=== PATIENT | male | born 2005 | race Caucasian/White ===

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

== ENCOUNTER → 2025-05-21 | Outpatient (CLI) | payer OTHER, SELFPAY ==
--- NOTE | 2025-05-21 11:41 | RAD_ITS ---
PROCEDURE: CHEST PA AND LATERAL 05/21/2025 REASON FOR EXAM: LEFT RIB PAIN TECHNIQUE: Procedure Code: RADCXR Modality: DX Procedure: CHEST PA AND LATERAL FINDINGS: No focal consolidation. No pleural effusion or pneumothorax. Cardiac silhouette is within normal limits. No acute fractures. RAD/Chest PA and Lateral IMPRESSION: No definite acute fractures however consider dedicated rib series if there is c ontinued concern for left rib fractures. Reading Location: [id number]
--- NOTE | 2025-05-21 11:41 | RAD_ITS ---
PROCEDURE: CHEST PA AND LATERAL 05/21/2025 REASON FOR EXAM: LEFT RIB PAIN TECHNIQUE: Procedure Code: RADCXR Modality: DX Procedure: CHEST PA AND LATERAL FINDINGS: No focal consolidation. No pleural effusion or pneumothorax. Cardiac silhouette is within normal limits. No acute fractures. RAD/Chest PA and Lateral IMPRESSION: No definite acute fractures however consider dedicated rib series if there is c ontinued concern for left rib fractures. Reading Location: [id number]
--- NOTE | 2025-05-21 11:46 | RAD_ITS ---
PROCEDURE: ABD INC DECUB AND/OR ERECT 05/21/2025 REASON FOR EXAM: LLQ RLQ PAIN TECHNIQUE: Procedure Code: RADABDMV Modality: DX Procedure: Three-view ABD INC DECUB AND/OR ERECT COMPARISON: None. RAD/Abd Inc Decub and/or Erect IMPRESSION: No evidence of pneumoperitoneum. A moderate stool burden is seen. Bowel-gas pattern is otherwise unremarkable. No mass or mass effect is seen. No significant osseous abnormality is noted. Reading Location: [id number]
--- NOTE | 2025-05-21 11:46 | RAD_ITS ---
PROCEDURE: ABD INC DECUB AND/OR ERECT 05/21/2025 REASON FOR EXAM: LLQ RLQ PAIN TECHNIQUE: Procedure Code: RADABDMV Modality: DX Procedure: Three-view ABD INC DECUB AND/OR ERECT COMPARISON: None. RAD/Abd Inc Decub and/or Erect IMPRESSION: No evidence of pneumoperitoneum. A moderate stool burden is seen. Bowel-gas pattern is otherwise unremarkable. No mass or mass effect is seen. No significant osseous abnormality is noted. Reading Location: [id number]
--- OUTSIDE RECORDS SUMMARY | 2025-05-21 14:24 | XMS RPT_ITS | CCD ---
Author Organization [facility] Results Test Name Value Interpretation Reference Range Facil itlucie ARRINGTONOVon 06-29-2021 CNOV Office Visit (PEDSWS ) CAYLA EUBANKS ([id number]) 5 M Date Time Provider Department 06/29/21 9:00 AM VICKI CASAS During your visit today, we recorded the following information about you: Temperature Pulse Respiration Blood pressure 99.1 degrees 80/minute 18/minute 106/70 Weight 61.2 kg Vicki Casas MD 07/16/2021 1:41 PM Signed INITIAL VISIT PEDIATRIC CONCUSSION SERVICE DATE: 06/29/2021 Cayla is a 15 year old male accompanied by mother for evaluation of concussion. He states he blacked out for a second or two and then got up. He doesn't recall which area of his head was hit onto the ground. He states he was several feet in the air and then hit his head on the hardwood floor. They were playing a running game called [employer] and Minnows. History was obtained from: mother and patient HPI: Date of injury: 06/21/2021 (8 days ago) Time of injury: During gym class Sport being played at time of injury: Running game Patient removed from game: Yes, by teacher Helmet worn: No Mouth piece used: No What hit your head? head to playing surface - hardwood Percent feeling back to normal self? 95% Symptoms since the injury have improved per patient. Number of previous concussions: 1 SCAT3 (Ages13 y/o and up) Sport Concussion Assessment Tool 3 How do you feel (right now)? none=0, mild=1-2, moderate=3-4, severe=5-6 ? Headache 1 ? Pressure in head 0 ? Neck Pain 0 ? Nausea or vomitting 0 ? Dizziness 0 ? Blurred Vision 0 ? Balance Problems 0 ? Sensitivity to light 0 ? Sensitivity to Noise 0 ? Feeling slowed down 1 ? Feeling like in a fog 0 ? Don't feel right 0 ? Difficulty concentrating 1 ? Difficulty remembering 0 ? Fatigue or low energy 1 ? Confusion 0 ? Drowsiness 0 ? Trouble falling asleep 1 ? More emotional 0 ? Irritability 0 ? Sadness 0 ? Nervous or Anxious 0 ? Do the symptoms get worse with physical activity? unknown ? Do the symptoms get worse with mental activity? unknown ? Symptom evaluation completed as clinician interview ? Overall rating: If you know the athlete well prior to the injury, how different is he acting compared to his usual self? n/a SAC (Ages13 y/o and up) Standardized Assessment of Concussion Orientation (1 point for each correct answer) ? What month is it? 0 ? What is the date today? 0 ? What is the day of the week? 1 ? What year is it? 1 ? What time is it right now? (within 1 hour) 1 Orientation Score 3 of 5 Immediate Memory (1 point for each correct answer) List Trial 1 Trial 2 Trial 3 Alternative Alternative Alternative elbow 1 1 1 candle baby finger apple 0 1 1 paper monkey charmaine carpet 1 1 1 sugar perfume blanket saddle 1 0 0 sandwich sunset lemon bubble 1 1 0 wagon iron insect Total 5 4 3 Immediate Memory Score Total 12 of 15 Concentration: Digits Backward (1 point for each correct answer) List Trial 1 Alternative Alternative Alternative 4-9-3 1 6-2-9 5-2-6 4-1-5 3-8-1-4 1 3-2-7-9 1-7-9-5 4-9-6-8 6-2-9-7-1 0 1-5-2-8-6 3-8-5-2-7 6-1-8-4-3 7-1-8-4-6-2 1 5-3-9-1-4-8 8-3-1-9-6-4 7-2-4-8-5-6 Total 3 of 4 Concentration: Month in Reverse Order (1 point for entire sequence correct) Jjt-Dna-Pdc-Apr-Mar- Apv-Mnj-Olu-- 0 Concentration Score 3 of 5 SAC Delayed Recall (Able to recall 5 serial words after delay) Delayed Recall Score 3 of 5 PAST MEDICAL HISTORY Diagnosis Date - NEGATIVE MEDICAL HISTORY ? How many concussions has Cayla had in the past? 1 ? When was the most recent concussion? 2019 ? ? Has Cayla ever been hospitalized or had medical imaging done (CT or MRI) for a head injury? no ? Has Cayla ever been diagnosed with headaches or migraines? no ? Does Cayla have a learning disability, dyslexia, ADD/ADHD or seizure disorder? no ? Has Cayla ever been diagnosed with depression, anxiety or other psychiatric disorder? no ? Has anyone in the family ever been diagnosed with any of these problems? no FAMILY HISTORY Problem Relation Age of Onset - None Unknown Social History Social History Narrative Not on file PHYSICAL EXAM: BP 106/70 Pulse 80 Temp 37.3 ?C (99.1 ?F) (Temporal Artery) Resp 18 Wt 61.2 kg (135 lb) General: Well developed, No acute distress Head: normocephalic Eyes: conjunctivae/corneas clear Oropharynx: moist mucous membranes, palate intact Neck: Supple, no adenopathy Resp: lungs clear to auscultation Heart: No murmurs, RRR , Normal S1 and S2. Extremities: No deformities or skin discoloration. Good capillary refill. Full range of motion. Skin: no rashes, lesions or jaundice NEUROLOGICAL EXAM: Cayla is alert and oriented times three Speech is Speech fluent and appropriate Cranial Nerves: Pupils are equal and reactive to light. Extraocular movements grossly intact Tongue is in midline Palate is upgoing evelyne (more content not included)... Normal [facility] Urgent Care Visit Reporton 0 03-27-2021 Urgent Care Visit Report [address] [place] [address] OFFICE VISIT Date of Service: 03/27/21 MR#: [id number] Acct: [id number] Name: CAYLA EUBANKS Rep #: [id number] : 2005 Provider: FEDERICA Pruitt Age/Sex: 15/M Location: [facility] [place] Status: Signed Intake Intake Visit Reasons: SPORTS PHYSICAL Chief Complaint: COUGH Allergies No Known Allergies Allergy (Verified 07/23/19 09:06) [facility] Medical History (Updated 03/26/20 @ 09:44 by Moise STALLWORTH PA) DAILY FEVERS History of concussion Severe headache Shortness of breath SUDDEN WEIGHT LOSS Social History (Updated 03/26/20 @ 09:45 by Moise STALLWORTH PA) Smoking Status: Never smoker alcohol intake: never HPI HPI Chief Complaint: COUGH Details: CAYLA EUBANKS, is a 15 M who presents to the office today for Coding Level of Care Code No Charge Assessment and Plan Plan Details Additional Comments: see scanned in documents 03/27/21 5707 A> Date Shima STALLWORTH Cosigner Signature: Date (if applicable) CC: [facility] Progress note 06-29-2021 Note Date & Type Note Facility 06-29-2021 Note HNO ID: [id number] Author: Vicki Casas MD Service: ? Author Type: Physician Type: Progress Notes Filed: 07/16/2021 1:41 PM Note Text: INITIAL VISIT PEDIATRIC CONCUSSION SERVICE DATE: 06/29/2021 Cayla is a 15 year old male accompanied by mother for evaluation of concussion. He states he blacked out for a second or two and then got up. He doesn't recall which area of his head was hit onto the ground. He states he was several feet in the air and then hit his head on the hardwood floor. They were playing a running game called [employer] and Minnows. History was obtained from: mother and patient HPI: Date of injury: 06/21/2021 (8 days ago) Time of injury: During gym class Sport being played at time of injury: Running game Patient removed from game: Yes, by teacher Helmet worn: No Mouth piece used: No What hit your head? head to playing surface - hardwood Percent feeling back to normal self? 95% Symptoms since the injury have improved per patient. Number of previous concussions: 1 SCAT3 (Ages13 y/o and up) Sport Concussion Assessment Tool 3 How do you feel (right now)? none=0, mild=1-2, moderate=3-4, severe=5-6 ? Headache 1 ? Pressure in head 0 ? Neck Pain 0 ? Nausea or vomitting 0 ? Dizziness 0 ? Blurred Vision 0 ? Balance Problems 0 ? Sensitivity to light 0 ? Sensitivity to Noise 0 ? Feeling slowed down 1 ? Feeling like in a fog 0 ? Don't feel right 0 ? Difficulty concentrating 1 ? Difficulty remembering 0 ? Fatigue or low energy 1 ? Confusion 0 ? Drowsiness 0 ? Trouble falling asleep 1 ? More emotional 0 ? Irritability 0 ? Sadness 0 ? Nervous or Anxious 0 ? Do the symptoms get worse with physical activity? unknown ? Do the symptoms get worse with mental activity? unknown ? Symptom evaluation completed as clinician interview ? Overall rating: If you know the athlete well prior to the injury, how different is he acting compared to his usual self? n/a SAC (Ages13 y/o and up) Standardized Assessment of Concussion Orientation (1 point for each correct answer) ? What month is it? 0 ? What is the date today? 0 ? What is the day of the week? 1 ? What year is it? 1 ? What time is it right now? (within 1 hour) 1 Orientation Score 3 of 5 Immediate Memory (1 point for each correct answer) List Trial 1 Trial 2 Trial 3 Alternative Alternative Alternative elbow 1 1 1 candle baby finger apple 0 1 1 paper monkey charmaine carpet 1 1 1 sugar perfume blanket saddle 1 0 0 sandwich sunset lemon bubble 1 1 0 wagon iron insect Total 5 4 3 Immediate Memory Score Total 12 of 15 Concentration: Digits Backward (1 point for each correct answer) List Trial 1 Alternative Alternative Alternative 4-9-3 1 6-2-9 5-2-6 4-1-5 3-8-1-4 1 3-2-7-9 1-7-9-5 4-9-6-8 6-2-9-7-1 0 1-5-2-8-6 3-8-5-2-7 6-1-8-4-3 7-1-8-4-6-2 1 5-3-9-1-4-8 8-3-1-9-6-4 7-2-4-8-5-6 Total 3 of 4 Concentration: Month in Reverse Order (1 point for entire sequence correct) Nzc-Qou-Qgn-Bbju-Lip-Gum-Fzo-Hii-Uji-Oct- 0 Concentration Score 3 of 5 SAC Delayed Recall (Able to recall 5 serial words after delay) Delayed Recall Score 3 of 5 PAST MEDICAL HISTORY Diagnosis Date - NEGATIVE MEDICAL HISTORY ? How many concussions has Cayla had in the past? 1 ? When was the most recent concussion? 2019 ? ? Has Cayla ever been hospitalized or had medical imaging done (CT or MRI) for a head injury? no ? Has Cayla ever been diagnosed with headaches or migraines? no ? Does Cayla have a learning disability, dyslexia, ADD/ADHD or seizure disorder? no ? Has Cayla ever been diagnosed with depression, anxiety or other psychiatric disorder? no ? Has anyone in the family ever been diagnosed with any of these problems? no FAMILY HISTORY Problem Relation Age of Onset - None Unknown Social History Social History Narrative Not on file PHYSICAL EXAM: BP 106/70 Pulse 80 Temp 37.3 ?C (99.1 ?F) (Temporal Artery) Resp 18 Wt 61.2 kg (135 lb) General: Well developed, No acute distress Head: normocephalic Eyes: conjunctivae/corneas clear Oropharynx: moist mucous membranes, palate intact Neck: Supple, no adenopathy Resp: lungs clear to auscultation Heart: No murmurs, RRR , Normal S1 and S2. Extremities: No deformities or skin discoloration. Good capillary refill. Full range of motion. Skin: no rashes, lesions or jaundice NEUROLOGICAL EXAM: Cayla is alert and oriented times three Speech is Speech fluent and appropriate Cranial Nerves: Pupils are equal and reactive to light. Extraocular movements grossly intact Tongue is in midline Palate is upgoing bilaterally Cayla is without significant pronator drift. Coordination is Gait normal station and stride. Romberg's sign negative ASSESSMENT/PLAN: Encounter Diagnosis ICD-10-CM 1. Concussion without loss of consciousness, initial encounter S06.0X0A - Discussed concussion, its usual (more content not included)... [facility] Summary Purpose Family History No Family History Records FoundNo Family History Records Found Advance Directives No Advanced Directives Records FoundNo Advanced Directives Records Found Additional Source Comments (unrecognized sect ion and content) No Status Records FoundNo Status Records Found INFORMATION SOURCE (unrecogn ized section and content) DATE CREATED AUTHOR 03/28/[address] [facility] DATE CREATED AUTHOR AUTHOR'S ORGANIZ ATION 10/07/2021 [facility] FOR RECORDS PERTAINING TO PATIENTS WHO ARE OR HAVE BEEN ENROLLED IN A CHEMICAL DEPENDENCY/SUBSTANCEABUSE PROGRAM, SOME INFORMATION MAY BE OMITTED. This clinical summary was aggregated from multiple sources. Caution should be exercised in using it in the provision of clinical care. This summary normalizes information from multiple sources, and as a consequence, information in this document may materially change the coding, format and clinical context of patient data. In addition, data may be omitted in some cases. CLINICAL DECISIONS SHOULD BE BASED ON THE PRIMARY CLINICAL RECORDS. [facility] [employer] provides no warranty or guarantee of the accuracy or completeness of information in this document.
--- OUTSIDE RECORDS SUMMARY | 2025-05-21 14:24 | XMS RPT_ITS | CCD ---
Author Organization [facility] Results Test Name Value Interpretation Reference Range Facil itlucie ARRINGTONOVon 06-29-2021 CNOV Office Visit (PEDSWS ) CAYLA EUBANKS ([id number]) 5 M Date Time Provider Department 06/29/21 [...] They were playing a running game called [employer] and Minnows. History was obtained from: mother [...] Order (1 point for entire sequence correct) Xkh-Sqj-Suk-Apr-Mar- Fwr-Bpi-Mzh-- 0 Concentration Score 3 of 5 SAC [...] upgoing evelyne (more content not included)... Normal [facility] Urgent Care Visit Reporton 0 03-27-2021 Urgent Care Visit Report [address] [place] [address] OFFICE VISIT Date of Service: 03/27/21 MR#: [id number] Acct: [id number] Name: CAYLA EUBANKS Rep #: [id number] : 2005 Provider: FEDERICA Pruitt Age/Sex: 15/M Location: [facility] [place] Status: Signed Intake Intake Visit Reasons: SPORTS PHYSICAL Chief Complaint: COUGH Allergies No Known Allergies Allergy (Verified 07/23/19 09:06) [facility] Medical History (Updated 03/26/20 @ 09:44 by [...] Additional Comments: see scanned in documents 03/27/21 4077 A> Date Shima STALLWORTH Cosigner Signature: Date (if applicable) CC: [facility] Progress note 06-29-2021 Note Date & Type Note Facility 06-29-2021 Note HNO ID: [id number] Author: Vicki Casas MD Service: ? Author [...] Order (1 point for entire sequence correct) Arh-Cky-Rpd-Nhza-Umu-Mhi-Vdz-Vnu-Udp-Oct- 0 Concentration Score 3 of 5 SAC [...] concussion, its usual (more content not included)... [facility] Summary Purpose Family History No Family History Records FoundNo Family History Records Found Advance Directives No Advanced Directives Records FoundNo Advanced Directives Records Found Additional Source Comments (unrecognized sect ion and content) No Status Records FoundNo Status Records Found INFORMATION SOURCE (unrecogn ized section and content) DATE CREATED AUTHOR 03/28/2021 [facility] DATE CREATED AUTHOR AUTHOR'S ORGANIZ ATION 10/07/2021 [facility] FOR RECORDS PERTAINING TO PATIENTS WHO ARE [...] BE BASED ON THE PRIMARY CLINICAL RECORDS. [facility] [employer] provides no warranty or guarantee of the accuracy or completeness of information in this document.
[2025-05-21 15:18] LABS: Hematocrit 44.9 % (40-54); Hemoglobin 15.7 g/dL (13.0-16.5); Immature Granulocytes Count 0.020 X10^3/uL (0.0-0.0); Mean Corp Hgb Conc 35.0 g/dL (32-36); Mean Corpuscular Volume 80.8 fL (80-94); Mean Platelet Vol. 10.1 fl (6.2-12.0); NRBC Flagged by Analyzer 0 % (0-5); Platelet Count 250 K/mm3 (150-450); RBC Distribution Width CV 12.2 % (11.6-14.6); RBC Distribution Width SD 35.6 fl (35.1-43.9); Red Blood Count 5.56 M/mm3 (4.6-6.2); White Blood Count 5.5 K/mm3 (4.4-11.0)
[2025-05-21 16:02] LABS: AST(SGOT) 18 U/L (<=37); Alanine Aminotransfer ALT/SGPT 9 U/L (<=46); Albumin, Serum 5.0 g/dL (3.5-5.0); Alkaline Phosphatase 80 U/L (40-129); Anion Gap 13 (5-15); BUN 20 mg/dL (4-19); BUN/Creat Ratio 19.0 RATIO (10-20); Calcium,Total 10.1 mg/dL (7.6-11.0); Carbon Dioxide 27.2 mmol/L (21.0-32.0); Chloride 98 mmol/L (98-108); Globulin 3.1 g/dL (2.2-4.2); Glucose 90 mg/dL (70-99); Potassium 3.8 mmol/L (3.3-5.1)
== END | disposition home or self-care (01) ==
PROVIDERS: PCP Family Medicine
DX: R10.12 Left upper quadrant pain (principal); R07.81 Pleurodynia
CPT/HCPCS: 36415; 71046; 74019; 80053; 85025